=== PATIENT | male | born 1995 | race African-American/Black ===

== ENCOUNTER → 2017-04-05 | Outpatient (CLI) | payer MEDICAID ==
[~2017-04-05] MED LIST: AC500T PO; ACET325T49; ADVAIR; ALB0.5V INH; ALBU8.5H2 IH; CETI10TA17; ESCT10T PO; FLUT1DIS28 IH; HYDR-2858 PO; HYDR1CAP2 PO; HYDR50TA76 PO; IBP600T1 PO; MELA1TAB11 PO; MNTL10T; NAPR550T PO; RIZA10TA23; RIZA10TA23 PO; TRZ100T PO; abilify
--- NOTE | 2017-04-05 13:09 | Diagnostic Imaging Report ---
PROCEDURE: MR imaging of the brain without contrast. TECHNIQUE: Multiplanar, multisequence MR imaging of the brain was performed without contrast. INDICATION: Headaches. Seizures. FINDINGS: There is a mixed intensity material seen filling the right frontal sinus presumably related to sinusitis. There is also obliteration of the right ethmoidal air cells and the right maxillary sinus. This is new when compared to CT scan of the head from 04/20/2012. Mild mucosal thickening in the left ethmoidal air cells is seen. The left maxillary sinus and the frontal sinus are clear. The sphenoidal sinuses are clear. The brain demonstrates no diffusion restriction to suggest an acute infarct or other diffusion abnormality. There is normal signal in the felix and white matter. No hydrocephalus. No extra-axial fluid collection is seen. The central vascular flow voids appear grossly unremarkable. The internal auditory canals and inner ear structures appear grossly unremarkable. The pituitary gland is normal in size. No hypothalamic or pineal region mass. IMPRESSION: 1. Obliteration of the right frontal sinus, right maxillary sinus and the right ethmoidal air cells which may relate to sinusitis and possible underlying polyposis. Correlate clinically. 2. No intracranial abnormality. Dictated by: Dictated on workstation # [id number]
== END ==
LOC: RAD 11:09
PROVIDERS: ATTEND Psychiatry & Neurology Neurology
DX: G93.89 Other specified disorders of brain (principal)
CPT/HCPCS: 70551